=== PATIENT | female | born 1950 | race Asian ===

== ENCOUNTER 2024-03-13 07:10 | Day surgery (SDC) | payer OTHER ==
[~2024-03-13] VITALS: Ht 152.4 cm; Wt 53.6 kg
[~2024-03-13 07:10] MED LIST: FentaNYL CITRATE PF 100 MCG/2 ML VIAL ONE; MIDAZOLAM HCL 2 MG/2 ML VIAL ONE
[2024-03-13] MEDS ORDERED: BENZOCAINE 20% 50 MCG/SPRAY 57 GM TP ONE (07:11)
[2024-03-13] MEDS ORDERED: LIDOCAINE 4% 50 ML SOLUTION TP ONE (07:11)
[2024-03-13] MEDS ORDERED: LIDOCAINE 2% 11 ML JELLY TP ONE (07:11)
[2024-03-13] MEDS ORDERED: MONT-35 PO (08:09)
[2024-03-13] MEDS ORDERED: ASPI-1450 PO (08:09)
[2024-03-13] MEDS ORDERED: ALEN70TA65 PO (08:09)
[2024-03-13] MEDS ORDERED: PRED-729 PO (08:09)
[2024-03-13] MEDS ORDERED: TOCI162P SQ (08:09)
[2024-03-13] MEDS ORDERED: INSU100I26 SQ (08:09)
[2024-03-13] MEDS ORDERED: HYDR25TA2 PO (08:09)
[2024-03-13] MEDS ORDERED: METF-1211 PO (08:09)
[2024-03-13] MEDS ORDERED: DOXY75CA5 PO (08:09)
[2024-03-13] MEDS ORDERED: BECL10.62 IH (08:09)
[2024-03-13] MEDS ORDERED: ATOR40TA28 PO (08:09)
[2024-03-13] MEDS ORDERED: PANT-31 PO (08:09)
[2024-03-13] MEDS ORDERED: PYRI-9 PO (08:09)
[2024-03-13 08:46] LABS: GLUCOMETER DEV NAME(LOC) SDS.; GLUCOSE,POINT OF CARE 88 MG/DL (70-110)
[2024-03-13 09:35] VITALS: PULSE 68; RESP 18; O2SAT 98
[2024-03-13] MEDS ORDERED: MethylPREDNISolone SOD SUCC 125 MG/2 ML VIAL ONE (10:10)
[2024-03-13] MEDS: MethylPREDNISolone SOD SUCC 125 MG/2 ML VIAL IVP ONE (10:12)
[2024-03-13] MEDS: SODIUM CHLORIDE 0.9% 1,000 ML IV ONE (10:12)
== END 2024-03-13 11:45 | disposition home or self-care (01) ==
LOC: SURGERY 07:10
PROVIDERS: ATTEND Internal Medicine Critical Care Medicine
DX: R05.3 Chronic cough (principal); R06.2 Wheezing; R49.0 Dysphonia; R04.2 Hemoptysis; R91.8 Other nonspecific abnormal finding of lung field; J38.4 Edema of larynx; B37.0 Candidal stomatitis; I10 Essential (primary) hypertension; E11.9 Type 2 diabetes mellitus without complications; Z86.73 Personal history of transient ischemic attack (TIA), and cerebral infarction without residual deficits; Z98.818 Other dental procedure status; Z98.49 Cataract extraction status, unspecified eye
CPT/HCPCS: 31623; 82962; 87206; 87101; 87220; 87070; 31624; 71045; 87015; J3010; J2250; J2919; 88108; Z7610